=== PATIENT | male | born 1975 | race Caucasian/White ===

== ENCOUNTER 2018-10-25 19:42 | Emergency (ER) | payer OTHER ==
--- NOTE | 2018-10-25 20:03 | ED Physician Documentation ---
PD HPI SKIN - Stated complaint Stated Complaint: ABCESS R KNEE - Chief complaint Chief Complaint: Wound - History obtained from History obtained from: Patient - History of Present Illness Timing - onset: How many days ago (2 days or increased redness, tender and swelling right posterior knee/lower thigh. Has had some small skin bumps in that area for over a month.) Timing - details: Gradual onset Quality / character: Painful, Discolored (red), Swelling. No: Itchy, Draining Associated symptoms: No: Fever, Myalgias, N/V/D Similar symptoms before: Has not had sx before Review of Systems Constitutional: denies: Fever, Chills GI: denies: Nausea, Vomiting, Diarrhea PD PAST MEDICAL HISTORY - Past Medical History Past Medical History: No - Past Surgical History Past Surgical History: No - Present Medications Home Medications: Ambulatory Orders Medication Instructions Recorded Confirmed Salicylic Acid [[place]-Callus 1 applic TP BID #15 ml 10/25/18 Remover] Sulfamethox/Trimeth 800/160 1 each PO BID #14 tablet 10/25/18 [Bactrim Ds 800/160] - Allergies Allergies/Adverse Reactions: Allergies Allergy/AdvReac Type Severity Reaction Status Date / Time Penicillins Allergy Hives Verified 10/25/18 19:50 - Social History Does the pt smoke?: No Smoking Status: Never smoker Does the pt drink ETOH?: Yes Does the pt have substance abuse?: No - Immunizations Immunizations are current?: Yes PD ED PE NORMAL - Vitals Vital signs reviewed: Yes - General General: Alert and oriented X 3, No acute distress, Well developed/nourished - Derm Derm: Normal color, Warm and dry - Extremities Extremities: Other (right lateral posterior lower thigh with several distinct small 2-3 mm sized firm, keratinized, whitish colored bumps, raised from skin. Additionally there is a rounded 3 cm area of redness, swelling and tenderness with some fluctuance. Bed side U/S confirms some fluid collection and I&D gets about 2-3 ml of purulent material. ) - Neuro Neuro: No motor deficit, No sensory deficit Results - Vitals Vitals: Vital Signs - 24 hr 10/25/18 10/25/18 10/25/18 19:47 19:58 20:58 Temperature 36.6 C 36.5 C Heart Rate 102 H 92 Respiratory 16 18 18 Rate Blood Pressure 141/89 H 129/94 H O2 Saturation 99 99 Oxygen O2 Source Room air Procedures - Abscess I&D (location) right posterior lower thigh Preparation: Confirmed with ultrasound, Lidocaine 1%, With epi Incision: Incised with scalpel, Purulent drainage, Irrigated. No: Packed, Culture obtained Other: Pt tolerated well, Dressing applied, Antibiotic prescribed PD MEDICAL DECISION MAKING - ED course Complexity details: considered differential (I think the underlying skin lesions that are small raised firm keratin bumps are likely warts. Can try some salicylate treatment. Otherwise there is an abscess formation from 1 of them and this was incised with small amount of pus out and will give him prescription for antibiotics.), d/w patient Departure - Departure Disposition: 01 Home, Self Care Clinical Impression: Abscess, Skin lesion of right leg Condition: Stable Record reviewed to determine appropriate education?: Yes Instructions: ED Abscess IandD, ED Warts Non Genital Follow-Up: [facility] [Provider Group] Prescriptions: Salicylic Acid [[place]-Callus Remover] 1 applic TP BID #15 ml Sulfamethox/Trimeth 800/160 [Bactrim Ds 800/160] 1 each PO BID #14 tablet Comments: Bactrim twice daily for the infection. Soak her warm towels to the area to improve blood flow and keep drainage out twice a day. You can apply some antibiotic ointment onto the area starting tomorrow twice daily. I think the spots they are look like small warts and I would try the salicylate treatment to those twice daily until better which likely be about a week. Discharge Date/Time: 10/25/18 21:04
[2018-10-25] MEDS ORDERED: SULFAMETH/TRIMETH DS 800/160 MG TABLET PO STA (20:50)
[2018-10-25] MEDS ORDERED: IBUPROFEN 600 MG TABLET PO STA (20:50)
[2018-10-25 20:59] VITALS: BP 129/94
== END 2018-10-25 21:04 | disposition home or self-care (01) ==
LOC: ED 19:42
DX: L02.415 Cutaneous abscess of right lower limb (principal); L98.9 Disorder of the skin and subcutaneous tissue, unspecified
CPT/HCPCS: 10060; 99283; A9270